=== PATIENT | female | born 1970 | race Caucasian/White ===

== ENCOUNTER → 2018-04-15 18:50 | Outpatient (CLI) | payer SELFPAY ==
[2018-04-24 11:18] LABS: HPV APTIMA, High Risk Negative (Negative)
[2018-05-04 10:00] LABS: HPV Reflexed? NOT INDICATED
== END ==
PROVIDERS: Family Provider Nurse Practitioner Family; PCP Nurse Practitioner Family; Referring Provider Obstetrics & Gynecology; Visit Provider Obstetrics & Gynecology
DX: Z12.4 Encounter for screening for malignant neoplasm of cervix (principal)
CPT/HCPCS: 87624; 88175; G0145

== ENCOUNTER → 2018-05-26 14:27 | Outpatient (CLI) | payer SELFPAY ==
[2018-05-25 08:51] VITALS: BMI 26.6
--- NOTE | 2018-05-26 14:33 | CT_ITS ---
STUDY: CT ABDOMEN AND PELVIS WITH CONTRAST REASON FOR EXAM: Female, 48 years old. Umbilical pain x2 years RADIATION DOSAGE (If Supplied By Facility): CTDIvol = ( 13.51 ) mGy, DLP = ( 673.36 ) mGycm TECHNIQUE: Transaxial images were obtained from the dome of the diaphragm to the symphysis pubis without oral contrast. Isovue 300 100 IV/Oral was administered. Sagittal and coronal images were reconstructed. Individualized dose optimization techniques were used for this CT. COMPARISON: None. FINDINGS: The visualized lung bases are unremarkable. The visualized portions of the heart are within normal limits. Liver is unremarkable aside from scattered simple cysts. There are surgical clips in the gallbladder fossa consistent with a prior cholecystectomy. Normal spleen. Normal pancreas. Normal bilateral adrenal glands. Normal right kidney. Normal left kidney. Filling defects present within the stomach likely represent ingested food Normal small intestine. Retained stool noted throughout the colon, scattered sigmoid diverticulosis. The appendix is visualized and appears normal. Appendix best seen on coronal recon image 37 Normal abdominal aorta. Normal inferior vena cava. Normal retroperitoneum. Normal urinary bladder. Normal visualized uterus. Normal abdominal wall. Normal osseous structures. CT/Abdomen/Pelvis WITH Contrast IMPRESSION: Simple hepatic cysts Sigmoid diverticulosis No CT evidence of an acute inflammatory process, normal appendix visualized. No free intraperitoneal fluid, air, or suspicious adenopathy Electronically Signed: Durga Davalos MD at 14:50 EST , Service support ,
== END ==
PROVIDERS: Family Provider Family Medicine; PCP Family Medicine; Referring Provider Surgery; Visit Provider Surgery
DX: K46.9 Unspecified abdominal hernia without obstruction or gangrene (principal); K76.89 Other specified diseases of liver; K57.30 Diverticulosis of large intestine without perforation or abscess without bleeding
CPT/HCPCS: 74177; Q9967

== ENCOUNTER 2019-01-25 08:07 | Day surgery (SDC) | payer SELFPAY ==
[2018-05-25 08:51] VITALS: BMI 26.6
[2019-01-20 16:25] LABS: Absolute Lymphocyte Count 2.39 X10^3/uL (0.83-4.51); Absolute Neutrophil Count 3.2 X10^3/uL (2.0-7.7); Basophil# 0.02 X10^3/uL; Basophil% 0.3 % (0-1); Eosinophil# 0.18 X10^3/uL; Eosinophils% 2.8 % (0-5); Hematocrit 37.3 % (37-47); Hemoglobin 12.2 g/dL (12.0-15.0); Lymphocyte # 2.39 X10^3/ul (4.0); Lymphocyte % 37.2 % (19-41); Mean Corp Hgb Conc 32.7 g/dL (32-36); Mean Corpuscular Volume 88.8 fL (81-99); Mean Platelet Vol. 10.2 fl (6.2-12.0); Monocyte# 0.67 X10^3/uL; Monocyte% 10.4 % (0-10); NRBC Flagged by Analyzer 0 % (0-5); Neutrophil # 3.16 X10^3/uL (2.7-7.7); Neutrophil % 49.1 % (47-70); Platelet Count 273 K/mm3 (150-450); RBC Distribution Width CV 13.2 % (11.6-14.6); RBC Distribution Width SD 42.6 fl (35.1-43.9); White Blood Count 6.4 K/mm3 (4.4-11.0)
[2019-01-20 16:42] LABS: International Normalized Ratio 1.1; Prothrombin Time (Protime)PT. 13.5 SECONDS (11.7-14.9)
[2019-01-20 16:43] LABS: Partial Thromboplast Time 27.3 Seconds (24.1-36.2)
[2019-01-20 16:57] LABS: AST(SGOT) 23 U/L (15-37); Alanine Aminotransfer ALT/SGPT 29 U/L (13-56); Albumin, Serum 3.8 g/dL (3.2-5.0); Alkaline Phosphatase 27 U/L (45-117); Bilirubin, Direct 0.14 mg/dL (0.00-0.30); Creatinine, Serum 0.78 mg/dL (0.55-1.02); EST Glomerular Filtration Rate 83 mL/min (>60); Est Glom Filt Rate - Afr Amer 100 mL/min (>60); Globulin 3.8 g/dL (2.2-4.2); Protein, Total 7.6 g/dL (6.4-8.2)
--- NOTE | 2019-01-24 18:27 | PCM.HP.BLA ---
History and Physical Date of Admission: 01/25/19 Surgical History and Physical Rossy Todd, a 49 year old female 5 0 0 0 5, presents for LAVH/LSO, right salpingectomy, AP Repair and (prior hernia repair) on January 25, 2019 at 11:15. -- Intermittant LLQ Pain; Prolapse Symptoms -- Pt complains of prolapse that is getting worse. She had pain over the weekend. As well as leaking if she picks up something heavy, coughs or sneezes. Pt has been taking Macrobid since visit in April if she has had pain or when she felt like she needed it. Long dip shows + blood and specific gravity 1.015 in urine. Medication and allergies are up to date. AM ok Rossy is being seen for preop visit. Pt to have LAVH, LSO, Right Salpinectomy, AP repair with Dr. Lynch on 01-25-19. Medications and allergies are up to date. Two new allergies added Macrobid and Bactrim causing hives/rash. Consents signed for surgery. Has small left abdominal mesh. Recurrent LLQ pain; Uterovaginal Prolapse which began 5-6 months ago. Rossy claims it started gradually It occurs 1-2 days per month. It is located in the LLQ of the abdomen. Rossy characterizes it to be to the right lower abdomen. Rossy characterizes the quality stabbing. Severity is severe; Severity is mild to moderate and usually lasts for a day putting her on the couch nearly all day. It is relieved by laying on the couch curled up. Associated signs and symptoms are gets frequent UTIs; has some prolapse of uterus and vagina but moderate. Additional comments are: 3 x 6 cm mesh placed in abdomen; also had tummy tuck; saw Dr. Herron and he noted no new hernias. MEDICATIONS HISTORY: Patient is also takin. No Meds ALLERGIES: No Known Drug Allergies, No Known Drug Allergies, Bactrim, Hives and/or rash, Macrobid and Hives and/or rash Infections - Chicken pox, Measles and HX. OF UTI'S Illnesses - none Accidents - None Hospitalizations - Childbirth and see surgery Review of Systems: GENERAL - Denies fever, or chills SKIN - Denies skin changes EYES - Denies visual changes EARS - Denies difficulty hearing NOSE - Denies nasal congestion or bleeding MOUTH - Denies sore throat or difficulty swallowing NECK - Denies pain or swelling RESPIRATORY - Denies shortness of breath or wheezing CARDIOVASCULAR - Denies palpitations or chest pain GASTROINTESTINAL - Denies nausea, vomiting, diarrhea, constipation GENITOURINARY - Denies dysuria, frequency of urination, incontinence of urine MUSCULOSKELETAL - Denies joint or muscle pain NEUROLOGICAL - Denies localized numbness or weakness PSYCHIATRIC - Denies depression or anxiety ENDOCRINE - Denies heat or cold intolerance, weight loss or gain HEMATO-IMMUNOLOGIC - Denies excesive bleeding with cuts SOCIAL HISTORY: Alcohol Use - denies drinking Smoking - denies smoking Diet - balanced Diet Lifestyle - Exercise - minimal Seat Belt Use - always Employer - Homemaker Illicit Drug Use - denies use of street drugs Sexual Activity - Spouse-Sig Other Name - Artemio Spouse-Sig Other Occupation - Construction Spouse-Sig Other Phone No - [phone] Children Name(s) - 5 living girls Control - NONE FAMILY HISTORY: nc MENSTRUAL HISTORY: LMP Known?- DefiniteAmount/Duration - 4 days, Regularity - Regular, Frequency - monthly days, LMP - 01/15/19 PAST PREGNANCIES: Total Pregnancies - 5; Full Term Pregnancies - 5; Premature - 0; Abortions, Induced - 0; Abortions, Spontaneous - 0; Ectopics - 0; Multiple Births - 0; Living Children - 5 SURGICAL HISTORY: 1. Gallbladder removal 2005 2. Hernia repair from Csection incision 2006 PHYSICAL EXAM BP- 110/78 Sitting, Right arm, regular cuff Temp- 98.4 Taken Orally Weight- 146.70211 lbs Height- 65.00 inch BMI:24.38 CONSTITUTIONAL - NAD, well nourished, and well developed SKIN - No rash, lesions, or ulcers HEENT - Normocephalic, PERRLA, EOMI NECK - No nodes, no nuchal rigidity and thyroid normal size and texture LYMPH NODES - Palpation of lymph nodes in neck and groins within normal limits LUNGS - CTA x2 without wheezes, crackles or rales CARDIAC - Regular rate and rhythm without rubs, murmurs, or gallops ABDOMEN - Without hepatosplenomegaly, distention, masses, rebound, or guarding; normal bowel sounds; no hernias and scar from right to left flank; seems to be sorer above symphasis pubis line and in line 12 cm below umbilicus EXTREMITIES - No edema or calf tenderness NEUROLOGICAL - Cranial nerves II-XII grossly intact PSYCHIATRIC - A and O to time, place, person, mood and affect External Genitial Vagina - non-tender without lesions and some erythema at introitus Urethra/Urethral Meatus - non-tender Bladder - non-tender Vagina - vaginal johnson are pink and moist without loss of rugae and no evidence of atropy, moderate cystocele and rectocele 3 cm outside introitus Cervix - without cervical motion tenderness and has normal size and features without evident lesions and prolapses to within 1-2 cm of introitus with tenaculum pull-down Uterus - multiparous size 6 cm & wt 75-125 g Adnexa - clear without massess or tenderness ASSESSMENT/PLAN: 1. Abdominal Pain,LLQ, Cystocele Midline, Rectocele, Uterovaginal Prolapse and Incomplete Discussed options for treatment and pt desires proceeding with LAVH/LSO/BS/AP Repair. Discussed RBAs of the surgery including not helping with her problems and increased riski of injury to bowel and bladder due to mesh and prior . All questions answered.
[2019-01-25] VITALS (11 sets, daily range): BP systolic 0–122; BP diastolic 0–77; PULSE 0–73; RESP 0–18; TEMP -17.7–37.2; O2SAT 0–100; BMI 24.3
[2019-01-25] MEDS: Lactated Ringers 1,000 ML 100 ML IV ×2 (09:50→12:15)
--- NOTE | 2019-01-25 10:15 | HYST_PTH ---
PATIENT: KEILA OVERTON LOC: [facility] [place] U#:[id number] AGE/SX: 49/F ROOM: RE01/25/[address]: Dr. Errol Lynch MD : 1970 BED: DIS: 01/26/2019 SPEC #: [id number] RECD: 01/25/19 15:55 STATUS: CRYSTAL MEERA #: [id number] PORSHA: 01/25/19 10:[address]: Errol Lynch DEPT: SURGICAL PATHOLOGY RECD BY: Clinton Pradhan ENTERED: 01/26/19 08:51 SP TYPE: HYSTERECT OTHR DR: Dr. Errol Rodriguez MD Tissues: Uterus, NOS Procedures: Surgery Specimen Level V HEADER OPERATION: Hysterectomy, lap assisted vaginal, left salpingo-oophorectomy, right salpingectomy PRE-OP DIAGNOSIS: Abdominal pain LLQ, cystocele midline, rectocele, uterovaginal prolapse TISSUE SUBMITTED: Uterus, left fallopian tube and ovary, right fallopian tube MICROSCOPIC DIAGNOSIS Uterus, left fallopian tube and ovary and right fallopian tube, vaginal mucosal tissue, vaginal hysterectomy, left salpingo-oophorectomy, right salpingectomy and A & P repair: Cervix - moderate chronic cystic cervicitis. Endometrium - proliferative endometrium. Myometrium - focal adenomyosis. - Intramural leiomyoma (1 cm in diameter). Bilateral fallopian tubes - no pathologic diagnosis. Left ovary - a physiologic, hemorrhagic corpus luteum (1 cm in greatest dimension). Vaginal mucosal tissue - pieces of squamous mucosa with reactive changes. SJ:ammon 01/27/19 MICROSCOPIC DESCRIPTION Slides are reviewed. GROSS DESCRIPTION Received in fixative is one container labeled with the patient's name and designated uterus, left fallopian tube and ovary, right fallopian tube. The specimen consists of a hysterectomy specimen consisting of uterus with cervix, attached right fallopian tube and left fallopian tube and ovary and detached pieces of mucosal tissue. The uterus with cervix weighs 105 gm and measures 10.5 x 6.5 x 5 cm. The serosal surface is [place], congested. The ectocervical mucosa is unremarkable. The external os is oval and patulous in contour. The endocervical canal measures 2.5 cm in length and the endocervical mucosa is unremarkable. Sections of the cervix reveal a few cysts filled with mucoid material. The triangular endometrial cavity measures 5 cm in length and 3 cm in width. The endometrium is pen[place], glistening without any mass lesion and measures up to 0.2 cm in thickness. Sections of the uterine wall reveal one nodular mass measuring 1 cm in diameter. Sections of this mass reveals [place] whorled cut surfaces without areas of hemorrhage, necrosis or cystic degeneration. The uterine wall measures up to 2.5 cm in thickness. The right fallopian tube measures 8 cm in length and up to 0.8 cm in diameter. The fimbrial end is identified. It appears to be interrupted in the middle consistent with previous tubal ligation. Sections reveal unremarkable cut surfaces. The left fallopian tube measures 6.5 cm in length and 0.7 cm in diameter. The fimbrial end is identified. It is interrupted in the middle consistent with previous tubal occlusion. Sections reveal unremarkable cut surfaces. No tubo-ovarian adhesions are noted. The left ovary measures 3.5 x 1 x 1.5 cm. The hemorrhagic corpus luteum is noted which appears partially on the surface measuring 1 cm in greatest dimension. Also present in the container are five variable sized pieces of mucosal tissue measuring in aggregate 6 x 4 x 0.5 cm. No mass lesion is identified. Instrumentation donis are noted on the surface. 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 / CANELO:ammon 01/26/19 TC:1 CPT: 85012
--- NOTE | 2019-01-25 10:19 | PCM.OPRPT ---
Report of Operation Date of Procedure: 01/25/19 Pre-Operative Diagnosis: Abdominal Pain,LLQ, Cystocele Midline, Rectocele, Uterovaginal Prolapse Incomplete Post-Operative Diagnosis: Abdominal Pain,LLQ, Cystocele Midline, Rectocele, Uterovaginal Prolapse Incomplete Surgery/Procedure Performed:: Laparoscopic Assisted Vaginal Hysterectomy, Left Salpingo-Oophorectomy, Right Salpingectomy, Anterior Posterior Repair Description of Surgical Findings:: 8 cm uterus with normal-appearing fallopian tubes and ovaries, moderate cystocele, moderate rectocele; some filmy adhesions between the left tube and ovary to the left pelvic sidewall. sample prep technician: Stevan Short Type of Anesthesia:: General - Endotracheal Anesthesiologist: Tia Arroyo Specimen's removed: Uterus, left fallopian tube and ovary, right tube, vaginal mucosa Drains: Neal to straight drain Estimated Blood Loss (mL): 100 cc Fluids Replaced: 1300 cc crystalloid Description of Procedure: Surgeon: Errol Lynch MD, FACOG Indications: This is a 49-year-old patient who is been having problems with prolapse symptoms and left lower quadrant pain. Conservative measures have not been helpful. Patient has a history of left lower quadrant mesh placement and a prior section. She also had a tummy tuck in the past. Given this the patient desires that we proceed the above procedure. She has been counseled regarding the risk and indications of this procedure including the possibility of bleeding, infection, and injury to surrounding structures such as bowel bladder. All questions were answered. Procedure: Patient was taken to the operating room where after induction of general anesthesia she was placed in the dorsal lithotomy position and prepped and draped in the usual sterile fashion. A Neal catheter was placed. Anterior cervix was grasped with a tenaculum and anterior cervix circumscribed with cautery on a setting of 35 W coagulation. A 4 x 4 Ray-Juliano was placed under anterior vaginal mucosa and a con cannula was placed. Attention was turned toward the laparoscopic portion of the procedure. Approximately 18 cc of half percent ropivacaine was injected 1 cm superior to the umbilicus and just above the symphysis pubis. A 5 mm bladeless trocar was introduced supraumbilically and intraperitoneal placement confirmed. After CO2 insufflation was completed a suprapubic bladeless 5 mm trocar was introduced under direct visualization. A 5 mm bladeless trocar was also introduced midway between these 2 ports. There was no evidence of adhesions from the patient's prior tummy tuck or mesh placement although the left fallopian tube and ovary were stuck to the left pelvic sidewall. Using an Enseal device, the right mesosalpinx and the left infundibulum pelvic ligament were divided to the round ligaments. The anterior vaginal peritoneum was then divided with the scissors over the area of the Ray-Juliano sponge and under direct visualization a narrow Viridiana was placed from the vagina. CO2 gas was discontinued and attention was again turned toward the vaginal hysterectomy portion of the procedure The posterior aspect of the cervix was circumscribed with a knife and posterior peritoneum easily entered. Progressive bites were taken on either side of the uterine cervix and each pedicle ligated with 0 Vicryl suture. Superior pedicles were ligated ?2 with 0 Vicryl suture and sidewall pedicles were examined and oversewn where necessary with [id number] 0 Vicryl suture to achieve hemostasis. Posterior vaginal cuff was oversewn with running locked 0 Vicryl suture. Hemostasis was noted and peritoneum was closed in a pursestring fashion incorporating superior pedicles into the stitch. Attention was turned toward the anterior repair portion of the procedure. Anterior vaginal mucosa was undermined and divided and then imbricated toward the midline with interrupted 0 Vicryl sutures. Vaginal mucosa was trimmed and then closed with interrupted 2-0 chromic suture. Vaginal cuff was then closed front to back with interrupted [id number] 0 Vicryl suture. Hemostasis was noted. Attention was turned toward the posterior repair portion of the procedure. Remnants of the hymenal ring were grasped with Allises and a V-shaped incision was made in the perineum. Rectovaginal mucosa was then undermined divided and then imbricated toward the midline with interrupted 0 Vicryl suture. Vaginal mucosa was trimmed and then closed with running locked 2-0 chromic suture. Perineum was closed in the usual fashion with running and subcuticular 2-0 chromic suture. Hemostasis was noted. Neal catheter was again opened and clear yellow urine was noted. Vagina was packed with 1 inch iodoform tape. The abdomen was reinsufflated with CO2 gas and pedicles were noted to be hemostatic. The pelvis was copiously irrigated with saline. Ureters were noted to peristalsis on both right and left sides. Laparoscopic instruments with as much CO2 gas were removed and incisions were closed with interrupted 4-0 Monocryl sutures. Steri-Strips were placed across the incisions. Patient tolerated the procedure well was taken to recovery room in satisfactory condition; sponge instrument and needle counts were all reportedly correct. Estimated blood loss for the case was 100 cc. Cefotan 2 g IV was given prior to beginning the operative procedure. There were no apparent complications of the surgery. Specimen to pathology was uterus, left fallopian tube and ovary, right fallopian tube, and vaginal mucosa. Grafts/Implants Used: None - Complications None - Admit VTE Documentation VTE Present on Admission: Yes VTE Mechan Device Prophylaxis: SCD's VTE Pharm Prophylaxis ordered?: Yes
--- NOTE | 2019-01-25 10:22 | DCINST_ITS ---
Discharge Diet: No Restrictions Discharge Activity: Return to Normal Activity, May Not Drive - while taking narcotic pain medications., May Shower, May Take a Tub Bath May resume sexual activity in: 6-8 weeks Call your doctor if your incision/area has: Continuous Slow Oozing, Sudden Inc reased Bleeding, Increased Pain/ Swelling, Increased Redness, Foul Smelling Discharge Call your doctor if you observe: Fever of 101 or Higher, Inability to urinate, Inability to have a bowel movement, Using more than one pad per hour Allergies/Adverse Reactions: Allergies ciprofloxacin Allergy (Mild, Verified 01/25/19 09:42) Unknown sulfamethoxazole [From Bactrim] Allergy (Mild, Verified 01/25/19 09:42) Unknown trimethoprim [From Bactrim] Allergy (Mild, Verified 01/25/19 09:42) Unknown morphine Adverse Reaction (Verified 01/25/19 09:42) Vomiting Medications to take at Discharge calcium carbonate 500 mg calcium (1,250 mg) tablet 500 mg PO BID tab 05/25/18 multivitamin capsule 1 cap PO DAILY 05/25/18 Docusate Sodium [Colace] 100 mg PO BID PRN PRN #60 cap 01/25/19 Oxycodone [Oxyir] 5 mg PO Q6H PRN PRN 7 Days #10 tab 01/25/19 The following prescriptions were given: Docusate Sodium [Colace] 100 mg PO BID PRN PRN #60 cap PRN Reason: Constipation Prescription Printed Oxycodone [Oxyir] 5 mg PO Q6H PRN PRN 7 Days #10 tab PRN Reason: Pain Score 6-10/10 Prescription Printed Primary Care Physician: Errol Rodriguez MD [Primary Care Provider] - Test Results: Test results from this visit will be discussed in further detail at your follow- up appointment, if applicable. Please Follow Up With: Errol Lynch MD When: 2 to 3 weeks
[2019-01-25] MEDS: Ropivacaine 0.5% 30 ML Vial (12:40)
[2019-01-25] MEDS: HYDROmorphone 0.5 MG/0.5 ML SYRINGE IV (14:47)
[2019-01-25] MEDS: Dextrose 5%-Lactated Ringers 1,000 ML 150 ML IV ×2 (14:47→21:16)
[2019-01-25] MEDS: oxyCODONE 5 MG Tablet PO (17:51)
[2019-01-25] MEDS: Enoxaparin 30 MG/0.3 ML Syringe SC (17:52)
[2019-01-25] MEDS: Ketorolac 30 MG/ML Syringe IV (18:45)
[2019-01-25] MEDS: Ondansetron 4 MG/2 ML Vial IV (20:32)
[2019-01-26] MEDS: Ketorolac 30 MG/ML Syringe IV ×3 (00:31→13:38)
[2019-01-26] MEDS: 0.9% Saline Lock 10 ML Syringe IV ×3 (00:34→13:37)
[2019-01-26 00:36] VITALS: BP 93/55; PULSE 63; RESP 16; TEMP 36.9; O2SAT 96
[2019-01-26 06:50] LABS: Hemoglobin 11.1 g/dL (12.0-15.0); Mean Corp Hgb Conc 32.6 g/dL (32-36); Mean Corpuscular Hgb 29.3 pg (27.0-32.0); Mean Corpuscular Volume 89.7 fL (81-99); Mean Platelet Vol. 10.1 fl (6.2-12.0); Platelet Count 254 K/mm3 (150-450); RBC Distribution Width CV 13.2 % (11.6-14.6); RBC Distribution Width SD 43.4 fl (35.1-43.9); Red Blood Count 3.79 M/mm3 (4.2-5.4); White Blood Count 14.8 K/mm3 (4.4-11.0)
[2019-01-26 07:23] VITALS: O2SAT 90
[2019-01-26 07:23] LABS: Creatinine, Serum 0.85 mg/dL (0.55-1.02); EST Glomerular Filtration Rate 75 mL/min (>60); Est Glom Filt Rate - Afr Amer 91 mL/min (>60); Estimated Creatinine Clearance 71.25 ml/min
--- NOTE | 2019-01-26 08:38 | PN.OBGYN_ITS ---
Subjective: Patient without complaints. Tolerating diet well. Positive flatus. Minimal vaginal bleeding. Ready to go home today. - Physical Exam Vitals/I&O's: Vital Signs Temp Pulse Resp BP Pulse Ox 98.4 F 63 16 93/55 L 96 01/26/19 00:36 01/26/19 00:36 01/26/19 00:36 01/26/19 00:36 01/26/19 00:36 Oxygen Delivery Method Room Air Weight: 146 lb 2.664 oz Body Mass Index (BMI) 24.3 Intake and Output for Last 24 Hours 01/24/19 01/25/19 01/26/19 23:59 23:59 23:59 Intake Total 3025.83 / 3275.83 1027.5 / 1027.5 Output Total 240 / 690 1300 / 1300 Balance 2785.83 / 2585.83 -272.5 / -272.5 Comment: Wound is clean, dry, intact. Good urine output. Hgb and creatinine ok. Laboratory Results 01/26/19 06:25: WBC 14.8 H, RBC 3.79 L, Hgb 11.1 L, Hct 34.0 L, MCV 89.7, MCH 29 .3, MCHC 32.6, RDW Std Deviation 43.4, RDW Coeff of Krystyna 13.2, Plt Count 254, MPV 10.1 01/26/19 06:25: Creatinine 0.85, Estim Creat Clear Calc 71.25, Est GFR (MDRD) Af Amer 91, Est GFR (MDRD) Non-Af 75 Current Medications Acetaminophen (Tylenol) 1,000 mg PO Q8H PRN PRN PRN Reason: Pain Score 1-3/10 or Fever Docusate Sodium (Colace) 100 mg PO BID PRN PRN PRN Reason: CONSTIPATION Hydromorphone HCl (Dilaudid Inj) 0.5 mg IV Q3H PRN PRN PRN Reason: Pain Score 4-10/10 Last Admin: 01/25/19 14:47 Dose: 0.5 mg Documented by: Sodium Chloride () 250 mls @ 15 mls/hr IV .[id number] PRN PRN Reason: Saline Flush Last Admin: 01/25/19 22:47 Dose: 15 mls/hr Documented by: Ketorolac Tromethamine (Toradol) 30 mg IV Q6H REPLACED BY [facility] Stop: 01/30/19 13:13 Last Admin: 01/26/19 06:22 Dose: 30 mg Documented by: Ondansetron HCl (Zofran) 4 mg IV Q4H PRN PRN PRN Reason: NAUSEA Last Admin: 01/25/19 20:32 Dose: 4 mg Documented by: Oxycodone HCl (Oxyir) 5 mg PO Q4H PRN PRN PRN Reason: Pain Score 4-10/10 Last Admin: 01/25/19 17:51 Dose: 5 mg Documented by: Simethicone (Mylicon) 80 mg PO [facility] Last Admin: 01/25/19 22:47 Dose: 80 mg Documented by: Sodium Chloride () 5 - 15 ml IV UD PRN PRN Reason: SALINE FLUSH Last Admin: 01/26/19 06:22 Dose: 10 ml Documented by: Medical Necessity - Tobacco Use Smoking Status: Never smoker Tobacco Use: Non-smoker Assessment/Plan Doing well postoperative day #1 status post LAVH/LSO/BS/AP repair. Will release to home with routine instructions.
[2019-01-26] MEDS: oxyCODONE 5 MG Tablet PO (10:38)
[2019-01-26 11:00] VITALS: BP 99/67; PULSE 60; RESP 16; TEMP 37; O2SAT 99
== END 2019-01-26 14:53 | disposition home or self-care (01) ==
LOC: SDC 08:08 → AC 08:09 → MS3 01-26 09:24
PROVIDERS: Family Provider Family Medicine; PCP Family Medicine; Referring Provider Obstetrics & Gynecology; Visit Provider Obstetrics & Gynecology
PROC: 0UT9FZZ Resection of Uterus, Via Natural or Artificial Opening With Percutaneous Endoscopic Assistance (ICD-10-PCS; CPT 57260; principal; 2019-01-25 09:50)
DX: N81.2 Incomplete uterovaginal prolapse (principal); N72 Inflammatory disease of cervix uteri; N83.12 Corpus luteum cyst of left ovary; D25.1 Intramural leiomyoma of uterus; R10.32 Left lower quadrant pain
CPT/HCPCS: 57260; 58552; 36415; 80076; 82565; 85025; 85027; 85610; 85730; 86850; 86900; 86901; 88307; J7050; J7120; A4216; C1760; J2405

== ENCOUNTER → 2019-03-24 10:20 | Outpatient (CLI) | payer OTHER, SELFPAY ==
[2019-01-25 14:36] VITALS: BMI 24.3
== END ==
PROVIDERS: Visit Provider Obstetrics & Gynecology
DX: N39.0 Urinary tract infection, site not specified (principal)
CPT/HCPCS: 87086; 87088